=== PATIENT | female | born 1995 | race Caucasian/White ===

== ENCOUNTER 2022-12-26 06:15 | Inpatient (IN) | payer BC ==
[2022-12-26] VITALS (41 sets, daily range): BP systolic 123–198; BP diastolic 52–103
[~2022-12-26] VITALS: Ht 154.9 cm; Wt 88.3 kg
[2022-12-26] MEDS ORDERED: D5 LR IV SOLUTION 1,000 ML IV SCH (07:30)
[2022-12-26] MEDS ORDERED: MINERAL OIL 30 ML UDC TOP PRN (07:30)
--- NOTE | 2022-12-26 07:31 | History & Physical-OB ---
OB - Chief Complaint & HPI Date/Time Date of Admission: Date of Admission: Dec 26, 2022 at 6:15 am Date seen by a Provider: Dec 26, 2022 Time Seen by a Provider: 07:30 Chief Complaint/History OB-Reason for Admission/Chief: Induction of Labor Hx : 3 Hx Para: 1 Expected Date of Delivery: Jan 01, 2023 Gestational Age in Weeks: 39 Gestational Age in Days: 1 Admission Nurse Assessment Rev: Yes History of Labs A pos Antibody neg RI RPR NR HBsAg NR HIV NR GC neg GBS neg Allergies and Home Medications Allergies Coded Allergies: No Known Drug Allergies (Unverified , 12/26/22) Patient Home Medication List Home Medication List Reviewed: Yes OB - History Hx of Present Care: Yes Ultrasounds: Normal mid trimester US Obstetrical Complications: None Medical Complications: None Patient Past Medical History n/a OB - Admission Exam Physical Exam HEENT: NCAT Heart: Rhythm Normal Lungs: Clear Abdomen: Gravid Extremities: Normal Reflexes: Normal Cervical Dilatation: 3cm Effacement: 75% Station: -1 Membranes: Intact Heart Rate: 130's Accelerations: Accelerations Present Decelerations: No Decelerations Short Term Variability: Present Fbi Field Agent Variability: Average (6-25) Contractions on Admission: 6-10 Minutes Apart Intensity: Mild Christie Scoring Tool (Modified) Dilation (cm): 3-4cm (2) Effacement (%): 51-79% (2) Descent/Station: -1,0 (2) Cervix Consistency: Soft (2) Cervix Position: Anterior (2) Add 1 point for: Each previous vaginal delivery (1) Christie Score: 11 OB - Assessment/Plan/Diagnosis Assessment Assessment: induction of labor Admission Dx 27 yo @ 39.1 IOL GBS neg Admission Status: Inpatient Order (span 2 midnights) Reason for Inpatient Admission: IOL at 39 weeks Plan Plan: Induction Induction Method: JESUS TAFOYA DO Dec 26, 2022 7:31 am
[2022-12-26 08:03] LABS: BASOPHILS % (AUTO) 0 % (0-10); EOSINOPHILS # (AUTO) 0.1 10^3/uL (0.0-0.3); EOSINOPHILS % (AUTO) 1 % (0-10); HEMATOCRIT 32 % (35-52); HEMOGLOBIN 9.9 g/dL (11.5-16.0); LYMPHOCYTES # (AUTO) 2.4 10^3/uL (1.0-4.0); LYMPHOCYTES % (AUTO) 20 % (12-44); MEAN CORPUSCULAR HEMOGLOBIN 24 pg (25-34); MEAN CORPUSCULAR HGB CONC 31 g/dL (32-36); MEAN CORPUSCULAR VOLUME 75 fL (80-99); MEAN PLATELET VOLUME 11.9 fL (9.0-12.2); MONOCYTES # (AUTO) 0.6 10^3/uL (0.0-1.0); MONOCYTES % (AUTO) 5 % (0-12); NEUTROPHILS # (AUTO) 8.8 10^3/uL (1.8-7.8); NEUTROPHILS % (AUTO) 73 % (42-75); PLATELET COUNT 257 10^3/uL (130-400)
[2022-12-26] MEDS ORDERED: OXYTOCIN PRE-MIX DRIP 500 ML IV SCH ×2 (09:30→15:45)
[2022-12-26] MEDS ORDERED: fentaNYL 2 mcg/ml BUPIVA 0.125 100 ML ONE (11:14)
[2022-12-26] MEDS ORDERED: BUPIVACAINE 0.25% 10 ML (SENSORCAINE) VIAL ONE (11:43)
[2022-12-26] MEDS ORDERED: fentaNYL INJ 100 MCG/2 ML AMP ONE (11:43)
[2022-12-26] MEDS ORDERED: diphenhydrAMINE 50 MG/ML INJ (BENADRYL) IV PRN (11:45)
[2022-12-26] MEDS ORDERED: ONDANSETRON 4 MG/2 ML (SDV) Z0FRAN IV PRN (11:45)
[2022-12-26] MEDS ORDERED: CATHETER FLUSH 10 ML SYR IV PRN (11:45)
[2022-12-26] MEDS ORDERED: fentaNYL 2 mcg/ml BUPIVA 0.125 100 ML IV SCH (11:45)
[2022-12-26] MEDS ORDERED: LACTATED RINGERS 1,000 ML IV ONE (11:45)
[2022-12-26] MEDS ORDERED: NALOXONE 0.4 MG/ML 1 ML (NARCAN) VIAL IV PRN ×2 (11:45→15:45)
[2022-12-26] MEDS ORDERED: CATHETER FLUSH 10 ML SYR IV SCH ×2 (14:00→22:00)
--- NOTE | 2022-12-26 15:44 | OB Labor & Delivery Record ---
L&D History Date of Service Date of Service: Dec 26, 2022 History Expected Date of Delivery: Jan 01, 2023 Gestational Age in Weeks: 39 Hx : 3 Hx Para: 1 Complications Events: Routine care Operative Indications (Cesarea: N/A-Vaginal Delivery Intrapartal Events: None L&D Stage1 Stage One Onset of Labor - Date: Dec 26, 2022 Monitors and Tracing Monitor Mode: External Heart Rate: 125 Monitor Accelerations: Uniform Station: 0 Fpc Variability: Average (6-10) Short Term Variability: Present Vital Signs VS - Last 72 Hours, by Label 12/26/22 12/26/22 12/26/22 12/26/22 07:30 07:30 08:20 08:50 Temp 36.8 36.8 36.6 Pulse 80 80 89 100 Resp 18 18 18 18 B/P (MAP) 144/81 (102) 134/75 (94) 123/64 (83) Pulse Ox 100 100 O2 Delivery Room Air Room Air Room Air Room Air 12/26/22 12/26/22 12/26/22 12/26/22 09:20 09:50 10:05 10:20 Temp 36.4 36.6 Pulse 93 93 87 92 Resp 18 18 18 18 B/P (MAP) 127/78 (94) 140/83 (102) 124/61 (82) 126/69 (88) O2 Delivery Room Air Room Air Room Air Room Air 12/26/22 12/26/22 12/26/22 12/26/22 10:35 10:50 11:05 11:20 Temp 36.6 Pulse 88 96 100 94 Resp 18 18 18 18 B/P (MAP) 125/74 (91) 136/77 (96) 136/85 (102) 128/73 (91) O2 Delivery Room Air Room Air Room Air Room Air 12/26/22 12/26/22 12/26/22 12/26/22 11:30 11:44 11:47 11:50 Pulse 88 78 92 108 Resp 18 18 18 18 B/P (MAP) 134/82 (99) 140/80 (100) 155/73 (100) 144/69 (94) Pulse Ox 99 99 99 O2 Delivery Room Air Room Air Room Air Room Air 12/26/22 12/26/22 12/26/2214/23 11:53 11:56 11:59 12:02 Pulse 90 85 83 90 Resp 18 18 18 18 B/P (MAP) 148/65 (92) 146/67 (93) 140/64 (89) 148/65 (92) Pulse Ox 98 99 100 98 O2 Delivery Room Air Room Air Room Air Room Air 12/26/22 12/26/22 12/26/22 12/26/22 12:05 12:08 12:11 12:15 Pulse 75 80 93 89 Resp 18 18 18 18 B/P (MAP) 139/65 (89) 136/64 (88) 140/60 (86) 143/78 (99) Pulse Ox 99 99 92 96 O2 Delivery Room Air Room Air Room Air Room Air 12/26/22 12/26/22 12/26/22 12/26/22 12:20 12:25 12:30 12:35 Temp 36.3 Pulse 93 88 90 78 Resp 18 18 18 18 B/P (MAP) 130/77 (94) 134/75 (94) 130/72 (91) 135/69 (91) Pulse Ox 97 97 98 O2 Delivery Room Air Room Air Room Air Room Air 12/26/22 12/26/22 12/26/22 12/26/22 12:40 12:45 13:00 13:15 Pulse 93 86 85 88 Resp 18 18 18 18 B/P (MAP) 125/72 (89) 126/72 (90) 132/76 (94) 136/72 (93) O2 Delivery Room Air Room Air Room Air Room Air 12/26/22 13:30 Pulse 85 Resp 18 B/P (MAP) 156/83 (107) O2 Delivery Room Air Rupture of Membranes Spontaneous Ruture of Membrane: Yes Amniotic Membrane Rupture Time: 0817 Induction/Anesthesia Epidural Cath Placement - Time: 1157 Progress/Notes Patient admitted for elective IOL. AROM performed followed by epidural placement and Pitocin augmentation. She progressed rapidly to complete and + 2 station. L&D Stage2 Stage Two Stage II Date: Dec 26, 2022 Monitors and Tracing Monitor Mode: External Heart Rate: 125 Position: Right Occiput Anterior Presentation: Vertex Cord Descript/Complications Cord Vessel Description: 3 Vessels Delivery Type Delivery Method: Spontaneous Vaginal Anterior Shoulder: Left Episiotomy/Perineal Laceration Laceraction(s)/Extensions: Yes Episiotomy Description: Perineal Extension/lac, 2nd degree (3-0 and 2-0 vicryl used to repair laceration in usual fashion.) Condition of Delivery 1 minute Comment: 8 5 minute Comment: 9 Notes Live female infant weight pending Condition of Infant Condition of : Living Exam: No Observed Abnormalities Resuscitation Resuscitation: N/A - Spontaneous Resp L&D Stage3 Stage Three Stage III Date: Dec 26, 2022 Pictocin Pitocin Administration mu/min: 10 Pitocin ml/hr: 10 Pitocin Administration Comment: 30 mu wide open after delivery of placenta Placenta Delivery Placenta Delivery: Spontaneous Delivery Summary Summary Estimated blood loss (mL): 300 Attending at delivery: Jesus Benavidez DO Condition of Delivery Examined: Cervix Examined, Uterus Explored Post Hemorrhage: No Condition of Mother stable Condition of Infant (s) stable JESUS BENAVIDEZ DO Dec 26, 2022 15:44
[2022-12-26] MEDS ORDERED: MEASLES,MUMPS,RUBELLA 1 EA INJ SQ ONE (15:45)
[2022-12-26] MEDS ORDERED: DIBUCAINE 1% OINTMENT 28 GM TUBE TOP PRN (15:45)
[2022-12-26] MEDS ORDERED: BENZOCAINE/MENTHOL (DERMOPLAST) 56 ML CAN TP PRN (15:45)
[2022-12-26] MEDS ORDERED: WITCH HAZEL(TUCKS) 40 EA JAR TOP PRN (15:45)
[2022-12-26] MEDS ORDERED: TETANUS,DIPTH,PERTUSS P/F (BOOSTRIX) 0.5 ML VIAL IM ONE (15:45)
[2022-12-26] MEDS ORDERED: HYDROcodone/APAP 5 MG/325 MG (LORTAB) TAB PO PRN (15:45)
[2022-12-26] MEDS: IBUPROFEN 600 MG (MOTRIN) TAB PO SCH ×2 (16:16→22:04)
[2022-12-26] MEDS ORDERED: ZOLPIDEM 5 MG (AMBIEN) TAB PO ONE (20:30)
[2022-12-26] MEDS: DOCUSATE SODIUM 100 MG (COLACE) CAP PO SCH (20:55)
[2022-12-27 01:50] VITALS: BP 122/73
[2022-12-27] MEDS: IBUPROFEN 600 MG (MOTRIN) TAB PO SCH ×3 (05:12→16:40)
[2022-12-27 05:41] LABS: BASOPHILS % (AUTO) 0 % (0-10); EOSINOPHILS # (AUTO) 0.1 10^3/uL (0.0-0.3); EOSINOPHILS % (AUTO) 1 % (0-10); HEMATOCRIT 28 % (35-52); HEMOGLOBIN 8.5 g/dL (11.5-16.0); LYMPHOCYTES # (AUTO) 3.6 10^3/uL (1.0-4.0); LYMPHOCYTES % (AUTO) 20 % (12-44); MEAN CORPUSCULAR HEMOGLOBIN 23 pg (25-34); MEAN CORPUSCULAR HGB CONC 30 g/dL (32-36); MEAN CORPUSCULAR VOLUME 77 fL (80-99); MEAN PLATELET VOLUME 11.5 fL (9.0-12.2); MONOCYTES # (AUTO) 0.9 10^3/uL (0.0-1.0); MONOCYTES % (AUTO) 5 % (0-12); NEUTROPHILS # (AUTO) 12.8 10^3/uL (1.8-7.8); NEUTROPHILS % (AUTO) 73 % (42-75); PLATELET COUNT 242 10^3/uL (130-400); WHITE BLOOD COUNT 17.6 10^3/uL (4.3-11.0)
[2022-12-27 05:53] VITALS: BP 136/78
[2022-12-27] MEDS ORDERED: PRENATAL VITAMIN 1 EA TAB PO SCH (07:00)
[2022-12-27 08:20] VITALS: BP 124/60
[2022-12-27] MEDS: DOCUSATE SODIUM 100 MG (COLACE) CAP PO SCH (08:20)
--- NOTE | 2022-12-27 08:28 | Postpartum Progress Note ---
Note Note Day # 1 Subjective: Patient is without complaints. Ambulating, voiding. Tolerating a regular diet without nausea or vomiting. Normal lochia. Pain is well controlled with oral pain medications. Objective: Physical Exam: General - Alert and oriented, no apparent distress Abdomen - Soft, appropriately tender to palpation, non-distended, fundus firm at umbilicus Extremities - no edema, negative Reagan's bilaterally Assessment: PPD 1 NVD Acute blood loss anemia Plan: Routine care. Encourage breast feeding. Encourage ambulation. Ferrous sulfate supplementation. Plan for discharge today Vitals - Labs Vital Signs - I&O Vital Signs Date Time Temp Pulse Resp B/P (MAP) Pulse Ox O2 Delivery O2 Flow Rate FiO2 12/27/22 05:53 36.2 89 18 136/78 (97) 97 Room Air 12/27/22 01:50 36.7 87 18 122/73 (89) 98 Room Air 12/26/22 20:55 36.7 90 18 127/69 (88) 97 Room Air 12/26/22 15:30 36.4 106 18 126/52 (76) Room Air 12/26/22 15:15 123 18 198/78 (118) Room Air 12/26/22 15:00 88 18 174/92 (119) Room Air 12/26/22 14:45 78 18 173/81 (111) Room Air 12/26/22 14:30 117 18 138/96 (110) Room Air 12/26/22 14:15 35.8 83 18 169/83 (111) Room Air 12/26/22 14:00 90 18 174/103 (126) Room Air 12/26/22 13:45 36.5 78 18 147/85 (105) Room Air 12/26/22 13:30 85 18 156/83 (107) Room Air 12/26/22 13:15 88 18 136/72 (93) Room Air 12/26/22 13:00 85 18 132/76 (94) Room Air 12/26/22 12:45 86 18 126/72 (90) Room Air 12/26/22 12:40 93 18 125/72 (89) Room Air 12/26/22 12:35 78 18 135/69 (91) Room Air 12/26/22 12:30 36.3 90 18 130/72 (91) 98 Room Air 12/26/22 12:25 88 18 134/75 (94) 97 Room Air 12/26/22 12:20 93 18 130/77 (94) 97 Room Air 12/26/22 12:15 89 18 143/78 (99) 96 Room Air 12/26/22 12:11 93 18 140/60 (86) 92 Room Air 12/26/22 12:08 80 18 136/64 (88) 99 Room Air 12/26/22 12:05 75 18 139/65 (89) 99 Room Air 12/26/22 12:02 90 18 148/65 (92) 98 Room Air 12/26/22 11:59 83 18 140/64 (89) 100 Room Air 12/26/22 11:56 85 18 146/67 (93) 99 Room Air 12/26/22 11:53 90 18 148/65 (92) 98 Room Air 12/26/22 11:50 108 18 144/69 (94) 99 Room Air 12/26/22 11:47 92 18 155/73 (100) 99 Room Air 12/26/22 11:44 78 18 140/80 (100) 99 Room Air 12/26/22 11:30 88 18 134/82 (99) Room Air 12/26/22 11:20 36.6 94 18 128/73 (91) Room Air 12/26/22 11:05 100 18 136/85 (102) Room Air 12/26/22 10:50 96 18 136/77 (96) Room Air 12/26/22 10:35 88 18 125/74 (91) Room Air 12/26/22 10:20 36.6 92 18 126/69 (88) Room Air 12/26/22 10:05 87 18 124/61 (82) Room Air 12/26/22 09:50 36.4 93 18 140/83 (102) Room Air 12/26/22 09:20 93 18 127/78 (94) Room Air 12/26/22 08:50 100 18 123/64 (83) Room Air Labs Laboratory Tests 12/27/22 05:11: White Blood Count 17.6H, Red Blood Count 3.66L, Hemoglobin 8.5L, Hematocrit 28L, Mean Corpuscular Volume 77L, Mean Corpuscular Hemoglobin 23L, Mean Corpuscular Hemoglobin Concent 30L, Red Cell Distribution Width 16.6H, Platelet Count 242, Mean Platelet Volume 11.5, Immature Granulocyte % (Auto) 1, Neutrophils (%) (Auto) 73, Lymphocytes (%) (Auto) 20, Monocytes (%) (Auto) 5, Eosinophils (%) (Auto) 1, Basophils (%) (Auto) 0, Neutrophils # (Auto) 12.8H, Lymphocytes # (Auto) 3.6, Monocytes # (Auto) 0.9, Eosinophils # (Auto) 0.1, Basophils # (Auto) 0.0, Immature Granulocyte # (Auto) 0.1 JESUS BENAVIDEZ DO Dec 27, 2022 08:28
[2022-12-27] MEDS ORDERED: ACHD5005 PO (08:29)
[2022-12-27] MEDS ORDERED: DOCU100C37 PO (08:29)
[2022-12-27] MEDS ORDERED: IBUP-844 PO (08:29)
--- NOTE | 2022-12-27 08:29 | Discharge Inst-Women's Service ---
Discharge Inst-Women's Serv Depart Medication/Instructions New, Converted or Re-Newed RX: Transmitted to Pharmacy Final Diagnosis PPD 1 NVD Problems Reviewed?: Yes Consults/Follow Up Additional Follow Up: Yes Orders/Referrals Dr. Benavidez in 6 weeks Activity Activity: Activity as Tolerated Driving Instructions: No Driving for 1 Week NO SMOKING: NO SMOKING Nothing Inside Vagina: No Douching, No [place], No Tampons Diet Discharge Diet: No Restrictions Symptoms to Report to : Bleeding Excessive, Pain Increased, Fever Over 101 Degrees F, Vaginal Bleeding Increase, Questions/Concerns For Any Problems or Questions: Contact Your Physician JESUS BENAVIDEZ DO Dec 27, 2022 08:29
[2022-12-27 13:30] VITALS: BP 124/72
--- NOTE | 2022-12-27 14:11 | Anesthesia-Regional Post-Op ---
Regional Patient Condition Mental Status: Alert, Oriented x3 Circulation: Same as Pre-Op Headache: Absent Sensation: Full Recovery Motor Block: Absent Post Op Complications Complications None Follow Up Care/Instructions Patient Instructions None needed. Anesthesia/Patient Condition Patient is doing well, no complaints, stable vital signs, no apparent adverse anesthesia problems. No complications reported per nursing. VIRI NUNO DO Dec 27, 2022 14:11
[2022-12-27 18:35] VITALS: BP 124/72
== END 2022-12-27 18:35 | disposition home or self-care (01) | DRG 806 ==
LOC: LDRP 06:15
PROVIDERS: ADMIT Obstetrics & Gynecology; ATTEND Obstetrics & Gynecology
PROC: 10E0XZZ Delivery of Products of Conception, External Approach (ICD-10-PCS; principal; 2022-12-26)
PROC: 0KQM0ZZ Repair Perineum Muscle, Open Approach (ICD-10-PCS; 2022-12-26)
PROC: 10907ZC Drainage of Amniotic Fluid, Therapeutic from Products of Conception, Via Natural or Artificial Opening (ICD-10-PCS; 2022-12-26)
DX: O70.1 Second degree perineal laceration during delivery (principal); D62 Acute posthemorrhagic anemia; Z37.0 Single live birth; Z3A.39 39 weeks gestation of pregnancy; O90.81 Anemia of the puerperium
CPT/HCPCS: 36415; 85025; 86780; 86850; 86900; 86901